=== PATIENT | female | born 1935 | race Caucasian/White ===

== ENCOUNTER 2017-02-15 13:47 | Inpatient (IN) ==
[2017-02-15] MEDS ORDERED: SODIUM CHLORIDE 0.9% 1,000 ML IV STA (15:22)
[2017-02-15] MEDS ORDERED: ONDANSETRON 4 MG/2 ML VIAL IV STA (15:22)
[2017-02-15] MEDS ORDERED: LOPERAMIDE 2 MG CAPSULE PO STA (15:22)
[2017-02-15 15:52] LABS: Basophils % 0.2 % (0.0-0.8); Eosinophils # 0.1 10*3/uL (0.0-0.87); Eosinophils % 0.7 % (0.00-10.9); Hematocrit 33.8 VOL% (35.7-47.0); Hemoglobin 11.3 GM/DL (12.0-16.0); Immature Granulocytes % 0.3 %; Immature Granulocytes Absolute 0.03 #; Lymphocytes # 1.7 10*3/uL (1.4-4.0); Mean Corpuscular HGB Conc 33.4 GM/DL (32-36); Mean Corpuscular Hemoglobin 30 PG (27-34); Mean Corpuscular Volume 90.9 FL (87-102); Monocytes # 0.6 10*3/uL (0.11-0.8); Neutrophils # 8.2 10*3/uL (1.4-7.4); Neutrophils % 76.8 % (38.7-73.9); Platelet Count 204 T/CUMM (130-400); Red Blood Count 3.72 MC/CUMM (3.8-5.5); Red Cell Distribution Width 13.9 % (9.3-17.3); White Blood Count 10.7 T/CUMM (4-12)
--- NOTE | 2017-02-15 16:03 | XRay Report ---
History: Abdominal pain Date: 02/15/2017 Study: KUB Comparison exam: March 30, 2015 There is some disproportionate small bowel dilatation compatible with partial small bowel obstruction. There is no gross mass lesion. Pacemaker lead is noted in the partially visualized chest. Surgical clips overlie the right upper abdomen. There has been previous right hip replacement. There is moderate degenerative disc disease of the lumbar spine. Impression: Partial small bowel obstruction PROCEDURE INTERPRETED AT [facility] DEPARTMENT OF RADIOLOGY Final Report Signed by: Dr. Asha Horan
[2017-02-15 16:10] LABS: Bilirubin,Total 0.9 MG/DL (0.2-1.0); Calcium 8.8 MG/DL (8.5-10.1); Osmolality,Calculated 282.5 MOS/KG (273-304); Potassium 4.1 MMOL/L (3.5-5.1); Total Protein 7.3 G/DL (6.4-8.3)
[2017-02-15] MEDS ORDERED: ONDANSETRON 4 MG/2 ML VIAL ONE (16:24)
--- NOTE | 2017-02-15 16:42 | Emergency Department Note ---
Jovanny Cunningham Brittany, am scribing for, and in the presence of, Mark Valles DO 15 :26. IReena John, DO, personally performed the services described in this documentation, ascribed by Mary Petty in my presence, and it is both accurate and complete 639 . Arrival - Arrival Chief Complaint: Nausea/Vomiting/Diarrhea Stated Complaint: vomiting, stomach cramps ED Nursing Triage Note: c/o Having nausea/vomiting/diarrhea , since night., generalized abd. pain , denies having increase temp Mode of Arrival: Wheelchair Limitations: No Limitations Source: Family Time Seen by Provider: 02/15/17 15:09 - History of Present Illness HPI Narrative: This is an 81 y/o white female,who presents to the ED with c/o abdominal pain which started 3 nights ago. She localizes the pain to the entire abdomen. She reports N/V/D, but denies a fever. Her states the diarrhea has now resolved but the vomiting is still there. She denies any hematochezia. She notes she has vomited x 2 today. Per edical chart, pt has a PMHx of chronic diarrhea. She states she normally takes Alk-seltzer. Pt has no other complaints/ pain in the ED at this time. Pt has a PMHx of pacemaker, A-fib, eye problems, recurring UTIs, chronic diarrhea, colon cancer, GI problems, and arthritis. Pt has had a T&A, hysterectomy ,appendectomy, hemicolectomy, cardiac ablation, gynecologic surgery, bilateral knee replacement, and left hip replacement. Pt has a family medical Hx of cancer. Pt denies a social Hx. Onset (ago): day(s) (Started 3 nights ago) Consistency: constant Severity: moderate Allergies/Adverse Reactions: Allergies Allergy/AdvReac Type Severity Reaction Status Date / Time Latex, Natural Rubber Allergy Severe RASH Verified 02/15/17 13:52 meperidine Allergy Intermediate Hallucinati Verified 02/15/17 13:52 ng Penicillins Allergy RASH Verified 02/15/17 13:52 ADHESIVE TAPE AdvReac Severe BLISTER Uncoded 02/15/17 13:52 Home Medications: Home Medications Medication Instructions Recorded Confirmed Type Multivitamin with Minerals 1 each PO DAILY 01/26/15 03/30/15 History [Multivitamins with Minerals] Digoxin Tab [Lanoxin Tab] 0.125 mg PO DAILY 02/24/15 03/30/15 History Ferrous Sulfate Tab [Feosol 325 mg PO DAILY 02/24/15 03/30/15 History Original Tab] Furosemide Tab [Lasix Tab] 20 mg PO DAILY 02/24/15 03/30/15 History Losartan [Cozaar] 25 mg PO DAILY 02/24/15 03/30/15 History Magnesium Chloride [Slow Mag] 64 mg PO DAILY 02/24/15 03/30/15 History Metoprolol Succinate Xl [Toprol Xl] 25 mg PO BID 02/24/15 03/30/15 History Pantoprazole Tab [Protonix Tab] 40 mg PO DAILY@0700 02/24/15 03/30/15 History Potassium Chloride Cap/Tab [K Dur] 20 meq PO DAILY 02/24/15 03/30/15 History Acetaminophen Tab [Tylenol Tab] 325 mg PO Q4H PRN #0 tablet 03/08/15 03/30/15 Rx HYDROcodone/ACETAMIN 5-325 [[place] 1 tablet PO Q4H PRN #20 tablet 03/08/15 Rx 5-325] Lactobacillus Acidoph/[place]gar 2 tablet PO TID tablet 03/08/15 03/30/15 Rx [Lactinex Chew Tab] Loperamide Cap [Imodium Cap] 2 mg PO Q2H PRN #0 capsule 03/08/15 03/30/15 Rx Warfarin [Coumadin] 2 mg PO DIRECTED 03/30/15 03/30/15 History Warfarin [Coumadin] 3 mg PO DIRECTED 03/30/15 03/30/15 History Review of System - Review of System 12 point system: reviewed and no additional remarkable complaints except as stated - Review of System Constitutional: Absent: chills, fever Head/Ears/Nose/Throat: Absent: epistaxis Respiratory: Absent: wheezing Cardiovascular: Absent: chest pain Gastrointestinal: Present: abdominal pain, nausea, vomiting. Absent: hematochezia Genitourinary female: Absent: dysuria Medical,Surgical,& Family Hx - Medical History Cardio: History of: Cardiac Dysrhythmia (A FIB), Pacemaker Neurology: No history of: Cerebrovascular Accident, Seizures HEENT: History of: Eye Problem (CATARACTS) Comment Only: HEENT Problems (CATARACTS) Respiratory: No history of: Asthma, Pulmonary Embolism Renal: No history of: Renal Failure Genitourinary: History of: Recurring Urinary Tract Infections Gastrointestinal: History of: Gastrointestinal Cancer (COLON CANCER), GI Problems (chronic diarrhea) Musculoskeletal: History of: Musculoskeletal Problems (arthritis) Other: History of: Cancer (RIGHT COLECTOMY) - Surgical History Cardiac Surgeries: Sugical HX of: Cardiac Catheterization (ABLATION) Thoracic Surgeries: Patient denies;: Lobectomy Neurologic Surgeries: Patient denies: Neurologic Surgery HEENT Surgeries: Surgical HX of: Tonsilectomy & Adenoidectomy Abdominal Surgeries: Surgical HX of: Abdominal Surgery (hemicolectomy), Appendectomy Reproductive Surgeries: Surgical HX of;: Gynecologic Surgery, Hysterectomy Orthopedic Surgeries: Surgical HX of;: Total Hip Replacement (LEFT), Total Knee Replacement (BILATERAL) - Family History Family History: Reports;: Family Cancer (1 BROTHER 3 SISTERS MOM) - Social History Smoking Status: Never smoker Frequency of Alcohol Use: None Type of Drug Use: None Exam Vital Signs: Vital Signs Temperature 97.0 F L 02/15/17 13:50 Pulse Rate 73 02/15/17 15:40 Respiratory Rate 18 02/15/17 15:40 Blood Pressure 135/68 02/15/17 15:40 O2 Sat by Pulse Oximetry 95 02/15/17 13:50 - General General appearance: alert, in no apparent distress - Head Head exam: Present: atraumatic, normocephalic, normal inspection - Eye Eye exam: Present: normal appearance, PERRL, EOMI. Absent: nystagmus - ENT ENT exam: Present: normal exam, mucous membranes moist - Neck Neck exam: Present: normal inspection, full ROM, trachea midline. Absent: tenderness - Chest Chest inspection: Present: normal inspection, symmetric chest wall rise. Absent : tenderness, rash, abscess - Respiratory Respiratory exam: Present: normal lung sounds bilaterally. Absent: prolonged expiratory phase, respiratory distress - Cardiovascular Cardiovascular exam: Present: regular rate, normal rhythm, normal heart sounds. Absent: murmur, rubs, gallop, clicks, JVD - Abdominal Exam Abdominal exam: Present: soft, tenderness (Diffuse tenderness), guarding, normal bowel sounds. Absent: distention, rebound, rigidity - Rectal Exam Rectal exam: Present: deferred - Extremities Exam Extremities exam: Present: normal inspection, full ROM, normal capillary refill. Absent: tenderness, pedal edema - Back Exam Back exam: Present: normal inspection, full ROM. Absent: tenderness, muscle spasm, rashes - Neurological Exam Neurological exam: Present: alert, oriented X3, CN II-XII intact. Absent: motor sensory deficit - Psychiatric Psychiatric exam: Present: normal affect, normal mood. Absent: depressed, agitated, anxious, flat affect - Skin Skin exam: Present: warm, dry, intact, normal color. Absent: rash, cyanosis, diaphoresis Results - Labs CBC & BMP: 02/15/17 14:13 02/15/17 14:13 Lab Results: I have reviewed the patients labs Labs: Laboratory Tests 02/15/17 02/15/17 14:13 14:13 WBC 10.7 RBC 3.72 L Hgb 11.3 L Hct 33.8 L MCV 90.9 MCH 30 MCHC 33.4 RDW 13.9 Plt Count 204 MPV 10.0 Neut % (Auto) 76.8 H Lymph % (Auto) 16.0 L Brooks % (Auto) 6.0 Eos % (Auto) 0.7 Baso % (Auto) 0.2 Neut # (Auto) 8.2 H Lymph # (Auto) 1.7 Brooks # (Auto) 0.6 Eos # (Auto) 0.1 Baso # (Auto) 0.0 Immature Gran % 0.3 Nucleated RBC % 0.0 Immature Gran # 0.03 Nucleated RBCs # 0.00 Immature Plt Fraction 0.0 Sodium 139 Potassium 4.1 Chloride 104 Carbon Dioxide 29 Anion Gap 10.1 BUN 27 H Creatinine 1.30 H GFR Calculation 41 BUN/Creatinine Ratio 20.00 Glucose 116 H Calculated Osmolality 282.5 Calcium 8.8 Total Bilirubin 0.90 AST 24 ALT 16 Alkaline Phosphatase 62 Total Protein 7.3 Albumin 3.0 L Globulin 4.3 H Albumin/Globulin Ratio 0.6 L Amylase 46 Lipase 118.0 - Diagnostic Findings Procedure: KUB x-ray: report reviewed by me (Partial small bowel obstruction) Disposition Clinical Impression: Small bowel obstruction, partial Case discussed with: patient, patient's family Disposition: Still a Patient Condition: Stable Time of Disposition: 16:41 (Pt to be admitted. Hospitalist and surgery to see.)
--- NOTE | 2017-02-15 17:16 | General Surg History&Physical ---
Assessment and Plan - Time spent with patient Time spent with patient: Less than 30 minutes (1) Small bowel obstruction, partial Status: Acute Assessment and plan: This is most likely a bowel obstruction secondary to adhesions. With the patient's previous history of colon cancer however we need to evaluate with a CT scan. If this is a benign cause of obstruction it may resolve with conservative treatment. I explained to the family that if it persists then we may need to look at surgical treatment. We will admit her and place her on IV fluids. Will check a CT scan of her abdomen. We will place a nasogastric tube. The patient and her family are in agreement with the plan. Current Visit: Yes History of Present Illness Chief complaint: Abdominal pain History of present illness: Ms. Garcia is a 81 year old female Who 3 days ago began having vague abdominal cramping followed by nausea and vomiting and diarrhea. Diarrheas and bowel movements stopped yesterday. Since that time she has had no bowel movements or flatus. She described the pain is mild and more in the right side of her abdomen. It feels better if she vomits. She does not know of any aggravating or alleviating factors. She has not had fever or chills. She has not had any blood per rectum. She has not had any hematemesis. She has had multiple abdominal operations. Home Medications Medication Instructions Recorded Confirmed Type Multivitamin with Minerals 1 each PO DAILY 01/26/15 03/30/15 History [Multivitamins with Minerals] Digoxin Tab [Lanoxin Tab] 0.125 mg PO DAILY 02/24/15 03/30/15 History Ferrous Sulfate Tab [Feosol 325 mg PO DAILY 02/24/15 03/30/15 History Original Tab] Furosemide Tab [Lasix Tab] 20 mg PO DAILY 02/24/15 03/30/15 History Losartan [Cozaar] 25 mg PO DAILY 02/24/15 03/30/15 History Magnesium Chloride [Slow Mag] 64 mg PO DAILY 02/24/15 03/30/15 History Metoprolol Succinate Xl [Toprol Xl] 25 mg PO BID 02/24/15 03/30/15 History Pantoprazole Tab [Protonix Tab] 40 mg PO DAILY@0700 02/24/15 03/30/15 History Potassium Chloride Cap/Tab [K Dur] 20 meq PO DAILY 02/24/15 03/30/15 History Acetaminophen Tab [Tylenol Tab] 325 mg PO Q4H PRN #0 tablet 03/08/15 03/30/15 Rx HYDROcodone/ACETAMIN 5-325 [[place] 1 tablet PO Q4H PRN #20 tablet 03/08/15 Rx 5-325] Lactobacillus Acidoph/[place] 2 tablet PO TID tablet 03/08/15 03/30/15 Rx [Lactinex Chew Tab] Loperamide Cap [Imodium Cap] 2 mg PO Q2H PRN #0 capsule 03/08/15 03/30/15 Rx Warfarin [Coumadin] 2 mg PO DIRECTED 03/30/15 03/30/15 History Warfarin [Coumadin] 3 mg PO DIRECTED 03/30/15 03/30/15 History Allergies Allergy/AdvReac Type Severity Reaction Status Date / Time Latex, Natural Rubber Allergy Severe RASH Verified 02/15/17 13:52 meperidine Allergy Intermediate Hallucinati Verified 02/15/17 13:52 ng Penicillins Allergy RASH Verified 02/15/17 13:52 ADHESIVE TAPE AdvReac Severe BLISTER Uncoded 02/15/17 13:52 Medical,Surgical,& Family Hx - Medical History Cardio: History of: Cardiac Dysrhythmia (A FIB), Pacemaker Neurology: No history of: Cerebrovascular Accident, Seizures HEENT: History of: Eye Problem (CATARACTS) Comment Only: HEENT Problems (CATARACTS) Respiratory: No history of: Asthma, Pulmonary Embolism Renal: No history of: Renal Failure Genitourinary: History of: Recurring Urinary Tract Infections Gastrointestinal: History of: Gastrointestinal Cancer (COLON CANCER), GI Problems (chronic diarrhea) Musculoskeletal: History of: Musculoskeletal Problems (arthritis) Other: History of: Cancer (RIGHT COLECTOMY) - Surgical History Cardiac Surgeries: Sugical HX of: Cardiac Catheterization (ABLATION) Thoracic Surgeries: Patient denies;: Lobectomy Neurologic Surgeries: Patient denies: Neurologic Surgery HEENT Surgeries: Surgical HX of: Tonsilectomy & Adenoidectomy Abdominal Surgeries: Surgical HX of: Abdominal Surgery (hemicolectomy), Appendectomy Reproductive Surgeries: Surgical HX of;: Gynecologic Surgery, Hysterectomy Orthopedic Surgeries: Surgical HX of;: Total Hip Replacement (LEFT), Total Knee Replacement (BILATERAL) - Family History Family History: Reports;: Family Cancer (1 BROTHER 3 SISTERS MOM) - Social History Smoking Status: Never smoker Frequency of Alcohol Use: None Type of Drug Use: None Exam - Constitutional Vitals: Period Temp Pulse Resp BP Sys/Pagan Pulse Ox Last 24 Hr 97.0 F 73-73 16-18 126-135/61-68 95 General appearance: no acute distress - Head Head exam: Present: normocephalic - Eye Eye exam: Absent: scleral icterus - ENT Mouth exam: Present: normal voice - Neck Neck exam: Present: trachea midline. Absent: tenderness - Respiratory Respiratory exam: Present: clear to auscultation bilaterally. Absent: accessory muscle use - Cardiovascular Cardiovascular exam: Present: RRR - GI/Abdominal GI/Abdominal exam: Present: soft. Absent: distended, tenderness, rebound - Neurological Exam Neurological exam: Present: alert, oriented X3. Absent: motor sensory deficit Speech: Present: normal - Skin Skin exam: Present: normal color - Constitutional Constitutional: Present: anorexia. Absent: chills, fever(s), weight loss - EENT Nose, mouth and throat: Absent: dysphagia - Cardiovascular Cardiovascular: Absent: chest pain at rest, chest pain with activity, dyspnea, dyspnea on exertion, syncope - Respiratory Respiratory: Absent: dyspnea, hemoptysis, dyspnea on exertion - Gastrointestinal Gastrointestinal: Present: abdominal pain, bloating, cramping, diarrhea, nausea , vomiting. Absent: hematemesis, hematochezia, melena, jaundice - Genitourinary Genitourinary: Absent: hematuria - Musculoskeletal Musculoskeletal: Absent: back pain - Neurological Neurological: Absent: focal weakness, syncope - Endocrine Endocrine: Absent: polyuria Hematologic/Lymphatic: Absent: easy bleeding, easy bruising Results - Labs CBC & BMP: 02/15/17 14:13 02/15/17 14:13 Lab Results: I have reviewed the past 24 hour labs - Diagnostic Findings Procedure: KUB x-ray: image reviewed by me, report reviewed by me
[2017-02-15] MEDS ORDERED: ONDANSETRON 4 MG/2 ML VIAL IV PRN (17:19)
[2017-02-15] MEDS ORDERED: ACETAMINOPHEN 325 MG TABLET PO PRN (17:19)
[2017-02-15] MEDS ORDERED: MORPHINE 2 MG/1 ML SYRINGE IV PRN (17:19)
--- NOTE | 2017-02-15 17:31 | Hospitalist Consult Note ---
Assessment and Plan - Time spent with patient Time spent with patient: Greater than 30 minutes (1) H/O colon cancer s/p hemicolectomy Status: Acute Assessment and plan: 81-year-old white female with history of cardiac dysrhythmias status post ablation 4 on Coumadin, colon cancer status post hemicolectomy, herpes zoster, and pacemaker placement presented to the ED with 4 day history of nausea and vomiting due to partial small bowel obstruction. Dr. Jacinto MARTINEZ has already seen and examined the patient. NG tube will be placed in CT scan of the abdomen and pelvis will be performed. This obstruction is most likely secondary to adhesions but need to rule out recurrence of colon cancer due to her history. Will restart her heart medications except for anticoagulation in case surgery is eminent. Patient also has acute renal failure most likely due to dehydration. She will receive IV fluids and we will monitor her kidney function. Labs have been ordered for the morning. We will continue to follow the patient. Thank you for this consult. Dr. Pritchard will see and examine patient and further recommendations to follow. Current Visit: Yes (2) History of cardiac dysrhythmia Status: Acute Current Visit: Yes (3) History of cardiac radiofrequency ablation Status: Acute Current Visit: Yes (4) Small bowel obstruction, partial Status: Acute Current Visit: Yes (5) Chronic anticoagulation Problem details: Warfarin toxicity. She is very reliable. Usually this is not a problem. Status: Chronic Current Visit: No (6) Acute renal failure Status: Resolved Current Visit: No History of Present Illness - Data of Consult Patient: new to practice Consult date: 02/15/17 Requesting Physician: Gerardo Casey III. - Consult Narrative Reason for consult: medical management History of present illness: Ms. Garcia is a 81 year old white female with history of A. fib status post 4 ablations on Coumadin, hypertension, pacemaker placement, and colon cancer status post colectomy 3 years [address] Jacinto MARTINEZ from general surgery with small bowel obstruction. Patient states approximately 4 days ago she started vomiting bilious material that was green with a foul odor. She states this was associated with nausea, right-sided abdominal pain, and runny diarrhea. Patient states the diarrhea stopped yesterday and since then she has passed no gas nor bowel movement. She denies chest pain or shortness of breath. Patient states that her hemicolectomy she has had no problems and did not require chemo or radiation. Upon exam patient is awake and alert and comfortable at this moment. Her abdomen is mildly distended with no bowel sounds. She is afebrile and her vital signs are stable. Labs are relatively unremarkable except for elevated creatinine of 1.3 and a BUN of 27. KUB is showing a partial small bowel obstruction. Hospital medicine has been consulted to assist with medical management. Patient's medicines will be reconciled once verified in the computer and patient is a full code. CC: - Home Medications and Allergies Home Medications: Home Medications Medication Instructions Recorded Confirmed Type Multivitamin with Minerals 1 each PO DAILY 01/26/15 03/30/15 History [Multivitamins with Minerals] Digoxin Tab [Lanoxin Tab] 0.125 mg PO DAILY 02/24/15 03/30/15 History Ferrous Sulfate Tab [Feosol 325 mg PO DAILY 02/24/15 03/30/15 History Original Tab] Furosemide Tab [Lasix Tab] 20 mg PO DAILY 02/24/15 03/30/15 History Losartan [Cozaar] 25 mg PO DAILY 02/24/15 03/30/15 History Magnesium Chloride [Slow Mag] 64 mg PO DAILY 02/24/15 03/30/15 History Metoprolol Succinate Xl [Toprol Xl] 25 mg PO BID 02/24/15 03/30/15 History Pantoprazole Tab [Protonix Tab] 40 mg PO DAILY@0700 02/24/15 03/30/15 History Potassium Chloride Cap/Tab [K Dur] 20 meq PO DAILY 02/24/15 03/30/15 History Acetaminophen Tab [Tylenol Tab] 325 mg PO Q4H PRN #0 tablet 03/08/15 03/30/15 Rx HYDROcodone/ACETAMIN 5-325 [[place] 1 tablet PO Q4H PRN #20 tablet 03/08/15 Rx 5-325] Lactobacillus Acidoph/[place] 2 tablet PO TID tablet 03/08/15 03/30/15 Rx [Lactinex Chew Tab] Loperamide Cap [Imodium Cap] 2 mg PO Q2H PRN #0 capsule 03/08/15 03/30/15 Rx Warfarin [Coumadin] 2 mg PO DIRECTED 03/30/15 03/30/15 History Warfarin [Coumadin] 3 mg PO DIRECTED 03/30/15 03/30/15 History Allergies/Adverse Reactions: Allergies Allergy/AdvReac Type Severity Reaction Status Date / Time Latex, Natural Rubber Allergy Severe RASH Verified 02/15/17 13:52 meperidine Allergy Intermediate Hallucinati Verified 02/15/17 13:52 ng Penicillins Allergy RASH Verified 02/15/17 13:52 ADHESIVE TAPE AdvReac Severe BLISTER Uncoded 02/15/17 13:52 Medical,Surgical,& Family Hx - Medical History Cardio: History of: Cardiac Dysrhythmia (A FIB), Pacemaker Neurology: No history of: Cerebrovascular Accident, Seizures HEENT: History of: Eye Problem (CATARACTS) Comment Only: HEENT Problems (CATARACTS) Respiratory: No history of: Asthma, Pulmonary Embolism Renal: No history of: Renal Failure Genitourinary: History of: Recurring Urinary Tract Infections Gastrointestinal: History of: Gastrointestinal Cancer (COLON CANCER), GI Problems (chronic diarrhea) Musculoskeletal: History of: Musculoskeletal Problems (arthritis) Other: History of: Cancer (RIGHT COLECTOMY) - Surgical History Cardiac Surgeries: Sugical HX of: Cardiac Catheterization (ABLATION) Thoracic Surgeries: Patient denies;: Lobectomy Neurologic Surgeries: Patient denies: Neurologic Surgery HEENT Surgeries: Surgical HX of: Tonsilectomy & Adenoidectomy Abdominal Surgeries: Surgical HX of: Abdominal Surgery (hemicolectomy), Appendectomy Reproductive Surgeries: Surgical HX of;: Gynecologic Surgery, Hysterectomy Orthopedic Surgeries: Surgical HX of;: Total Hip Replacement (LEFT), Total Knee Replacement (BILATERAL) - Family History Family History: Reports;: Family Cancer (1 BROTHER 3 SISTERS MOM) - Social History Smoking Status: Never smoker Frequency of Alcohol Use: None Type of Drug Use: None Marital Status: Lives With:: Spouse Functional capacity: independent ambulation 12 point system: reviewed and no additional remarkable complaints except as stated Exam - Constitutional Vitals: Period Temp Pulse Resp BP Sys/Pagan Pulse Ox Last 24 Hr 97.0 F 73-73 16-18 126-135/61-68 95 Exam: Constitutional System: No distress. No tremulousness. Head: Normocephalic, atraumatic. Ears, Nose and Throat System: No evidence of Otitis or Mastoiditis. No epistaxis or discharge Eyes System: Pupils equal, round, and reactive. Extraocular muscles intact. Neck: Supple, without adenopathy, No jugular venous distention. No thyromegaly, neck mass, or prior surgery apparent. Respiratory System: Chest clear to auscultation. Left chest wall well-healed scar Cardiovascular System: Heart with regular rate and rhythm. No murmur. GI System: Abdomen mildly distended, tender to palpation right lower quadrant. No active bowel sounds present. Well-healed midline incision Musculoskeletal System: limbs with no pedal edema. Full distal pulses. Neurological System: No discernable sensory deficit. No aphasia Psychiatric System: Conversation is rational Results - Labs CBC & BMP: 02/15/17 14:13 02/15/17 14:13 Lab Results: I have reviewed the past 24 hour labs - Impressions EKG is pending - Diagnostic Findings Procedure: KUB x-ray: report reviewed by me (Partial small bowel obstruction) Quality Measures - VTE Contraindication to Pharmacological VTE Prophylaxis: Already on Theraputic Agent , No Prophylaxis Needed
--- NOTE | 2017-02-15 18:13 | CT Report ---
History: Small bowel obstruction Date: 02/15/2017 Study: CT abdomen and pelvis with IV contrast Comparison exam: January 31, 2015 Technique: Spiral CT sections were obtained from the lung bases to the pubic symphysis following 100 mL Omnipaque [address] abdomen: There is no nereida pneumonia in the partially visualized lung bases. There is mild perihepatic ascites. There are some stable benign cystic areas in the liver. There has been previous cholecystectomy. There is mild perisplenic ascites. Spleen, pancreas, adrenal glands are unremarkable. There is bilateral renal excretion without hydronephrosis. Small renal cysts are noted bilaterally. There is disproportionate small bowel dilatation compatible with partial small bowel obstruction. It is suspected that the transition zone is in the right lower quadrant. Consider adhesions. No obvious mass is seen. The distal ileum is normal in caliber. There is no aortic aneurysm. There is prominent degenerative disc disease of spine. CT pelvis: There is no obvious pelvic mass, though metallic artifact from the right hip prosthesis is present. Impression: Partial small bowel obstruction. Transition zone is suspected to be in the right lower quadrant. Consider adhesions The CT exam was performed using one or more of the following dose reduction techniques: Automated exposure control, adjustment of the mA and/or kV according to patient size, or use of iterative reconstruction technique. PROCEDURE INTERPRETED AT [facility] DEPARTMENT OF RADIOLOGY Final Report Signed by: Dr. Asha Horan
[2017-02-15] MEDS: DEXTROSE 5% LACTATED RINGERS 1,000 ML IV SCH (18:33)
--- NOTE | 2017-02-15 20:20 | XRay Report ---
History: Nasogastric tube placement Date: 02/15/2017 Study: Chest x-ray single view portable Comparison exam: March 06, 2015 The nasogastric tube is positioned with its tip overlying the proximal to mid stomach level. There is cardiomegaly. The pulmonary vasculature is slightly prominent. There is no mediastinal mass. There is mild to moderate aortic arch calcification. There is some coarsening of interstitial markings in the lower lungs which may be chronic. A left subclavian dual-lead transvenous pacemaker is unchanged. Osseous structures are similar. Impression: The nasogastric tube is well-positioned. Cardiomegaly and evidence of mild CHF PROCEDURE INTERPRETED AT [facility] DEPARTMENT OF RADIOLOGY Final Report Signed by: Dr. Asha Horan
[2017-02-15] MEDS: METOPROLOL SUCCINATE XL 25 MG TABLET PO SCH (22:13)
[2017-02-15] MEDS: ENOXAPARIN 80 MG/0.8 ML SYRINGE SUBCUT SCH (22:14)
[2017-02-16] MEDS: DEXTROSE 5% LACTATED RINGERS 1,000 ML IV SCH ×3 (00:40→17:49)
[2017-02-16 08:43] LABS: Basophils % 0.2 % (0.0-0.8); Eosinophils # 0.3 10*3/uL (0.0-0.87); Eosinophils % 3.2 % (0.00-10.9); Hematocrit 29.6 VOL% (35.7-47.0); Hemoglobin 9.8 GM/DL (12.0-16.0); Immature Granulocytes % 0.3 %; Immature Granulocytes Absolute 0.03 #; Lymphocytes # 3.2 10*3/uL (1.4-4.0); Lymphocytes % 35.6 % (21.3-54.2); Mean Corpuscular HGB Conc 33.1 GM/DL (32-36); Mean Corpuscular Hemoglobin 31 PG (27-34); Mean Corpuscular Volume 92.8 FL (87-102); Mean Platelet Volume 10.3 FL (9.6-12.0); Monocytes # 0.9 10*3/uL (0.11-0.8); Neutrophils # 4.5 10*3/uL (1.4-7.4); Neutrophils % 50.7 % (38.7-73.9); Platelet Count 187 T/CUMM (130-400); Red Blood Count 3.19 MC/CUMM (3.8-5.5); White Blood Count 8.8 T/CUMM (4-12)
[2017-02-16 09:01] LABS: INR 1.5; PT Patient Result 16.6 SECS
[2017-02-16 09:19] LABS: Albumin 2.5 G/DL (3.4-5.0); Bilirubin,Total 0.7 MG/DL (0.2-1.0); Calcium 8.4 MG/DL (8.5-10.1); Osmolality,Calculated 283.3 MOS/KG (273-304); Potassium 3.8 MMOL/L (3.5-5.1); Total Protein 5.7 G/DL (6.4-8.3)
[2017-02-16] MEDS: METOPROLOL SUCCINATE XL 25 MG TABLET PO SCH ×2 (09:45→20:15)
[2017-02-16] MEDS: LOSARTAN 25 MG TABLET PO SCH (09:45)
[2017-02-16] MEDS: POTASSIUM CHLORIDE 20 MEQ TABLET PO SCH (09:50)
[2017-02-16] MEDS: PANTOPRAZOLE 40 MG TABLET PO SCH (09:50)
--- NOTE | 2017-02-16 10:28 | General Surgery Progress Note ---
Assessment and Plan - Time spent with patient Time spent with patient: Less than 30 minutes (1) Small bowel obstruction, partial Status: Acute Assessment and plan: This is most likely a bowel obstruction secondary to adhesions. With the patient's previous history of colon cancer however we need to evaluate with a CT scan. If this is a benign cause of obstruction it may resolve with conservative treatment. I explained to the family that if it persists then we may need to look at surgical treatment. We will admit her and place her on IV fluids. Will check a CT scan of her abdomen. We will place a nasogastric tube. The patient and her family are in agreement with the plan. 02/16: She feels better but is not passing flatus or having a bowel movement. She has a moderate amount of nasogastric output. I feel that we should continue with nasogastric suction today and if by tomorrow she is not showing signs of opening up then we may have to consider the possibility of surgery. This plan was discussed in detail with the patient. Current Visit: Yes Subjective Patient reports: Present: feels better, pain is less, no flatus, no bowel movement. Absent: nausea, vomiting, shortness of breath Exam - Constitutional Vitals: Period Temp Pulse Resp BP Sys/Pagan Pulse Ox Last 24 Hr 97.0 F-97.6 F 69-82 16-18 108-143/57-69 93-96 General appearance: no acute distress - Head Head exam: Present: normocephalic - Eye Eye exam: Absent: scleral icterus - Respiratory Respiratory exam: Absent: accessory muscle use - GI/Abdominal GI/Abdominal exam: Present: soft. Absent: distended, guarding, tenderness, rebound Results - Labs CBC & BMP: 02/16/17 08:19 02/16/17 08:19 Lab Results: I have reviewed the past 24 hour labs Quality Measures - VTE Contraindication to Pharmacological VTE Prophylaxis: Already on Theraputic Agent , No Prophylaxis Needed
--- NOTE | 2017-02-16 10:44 | Hospitalist Progress Note ---
Assessment and Plan (1) Chronic anticoagulation Status: Chronic Assessment and plan: The patient is anticoagulated with Coumadin secondary to atrial fibrillation. Her INR is 1.5. She is currently receiving subcutaneous Lovenox injection- renally dosed for her elevated creatinine. Current Visit: No (2) History of atrial fibrillation Status: Chronic Assessment and plan: Currently rate controlled. Patient on digoxin and beta-blockers with good results Current Visit: No (3) Small bowel obstruction, partial Status: Acute Assessment and plan: The patient has an NG tube to suction. She is being followed by general surgery for this. Continue supportive care. Current Visit: Yes (4) Chronic kidney disease, stage II (mild) Status: Chronic Assessment and plan: Creatinine is close to baseline. Continue IV fluids as the patient is n.p.o. Current Visit: No Hospitalist: Subjective Interval history: Patient seen and examined. No acute events overnight. Case discussed with nursing staff. Labs reviewed. at the bedside at the time of my visit. She reports some improvement in her abdominal pain But complains of a headache. She would like something to drink. Exam - Constitutional Vitals: Period Temp Pulse Resp BP Sys/Pagan Pulse Ox Last 24 Hr 97.0 F-97.6 F 69-82 16-18 108-143/57-69 93-96 Exam: Constitutional System: No distress. No tremulousness. Head: Normocephalic, atraumatic. Ears, Nose and Throat System: No pain or tenderness. No epistaxis or discharge. NG tube in place. Eyes System: Pupils equal, round, and reactive. Extraocular muscles intact. Neck: Supple, without adenopathy, No jugular venous distention. No thyromegaly, neck mass, or prior surgery apparent. Respiratory System: Chest clear to auscultation. Cardiovascular System: Heart with regular rate and rhythm. No murmur. GI System: Abdomen soft, mild tenderness in the right lower quadrant. Hypo- active bowel sounds present. Musculoskeletal System: limbs with no pedal edema. Full distal pulses. Normal capillary refill. Neurological System: No discernable sensory deficit. No aphasia Psychiatric System: Conversation is rational Results - Labs CBC & BMP: 02/16/17 08:19 02/16/17 08:19 Lab Results: I have reviewed the past 24 hour labs Quality Measures - VTE Contraindication to Pharmacological VTE Prophylaxis: Already on Theraputic Agent , No Prophylaxis Needed
--- NOTE | 2017-02-16 10:58 | XRay Report ---
History: Nasogastric tube placement. Small bowel obstruction Date: 02/16/2017 Study: Chest x-ray AP portable Comparison exam: 02/15/2017 The nasogastric tube is well-positioned with its tip overlying the distal stomach level. There is continued cardiomegaly. The mediastinal contours are unchanged. There is again mild prominence of the pulmonary vasculature. There is some interstitial disease in the lung bases which could be chronic, though some superimposed mild interstitial edema cannot be completely excluded. A left subclavian multiple lead pacemaker device is intact and unchanged. Osseous structures are similar. Impression: Satisfactory positioning of the nasogastric tube. Otherwise unchanged PROCEDURE INTERPRETED AT [facility] DEPARTMENT OF RADIOLOGY Final Report Signed by: Dr. Asha Horan
[2017-02-16] MEDS: DIGOXIN 0.125 MG TABLET PO SCH (12:43)
[2017-02-16] MEDS: ENOXAPARIN 80 MG/0.8 ML SYRINGE SUBCUT SCH (20:17)
[2017-02-17 06:02] LABS: Basophils % 0.3 % (0.0-0.8); Eosinophils # 0.3 10*3/uL (0.0-0.87); Hematocrit 28.9 VOL% (35.7-47.0); Hemoglobin 9.5 GM/DL (12.0-16.0); Immature Granulocytes % 0.1 %; Immature Granulocytes Absolute 0.01 #; Lymphocytes # 2.3 10*3/uL (1.4-4.0); Lymphocytes % 33.4 % (21.3-54.2); Mean Corpuscular HGB Conc 32.9 GM/DL (32-36); Mean Corpuscular Hemoglobin 31 PG (27-34); Mean Corpuscular Volume 93.8 FL (87-102); Mean Platelet Volume 10.3 FL (9.6-12.0); Monocytes # 0.7 10*3/uL (0.11-0.8); Monocytes % 10.5 % (1.7-12.7); Neutrophils # 3.5 10*3/uL (1.4-7.4); Neutrophils % 51.7 % (38.7-73.9); Platelet Count 183 T/CUMM (130-400); Red Blood Count 3.08 MC/CUMM (3.8-5.5); Red Cell Distribution Width 13.9 % (9.3-17.3); White Blood Count 6.8 T/CUMM (4-12)
[2017-02-17 06:27] LABS: INR 1.4
[2017-02-17 06:46] LABS: Calcium 8.1 MG/DL (8.5-10.1); Magnesium 2.2 MG/DL (1.8-2.4); Osmolality,Calculated 289.6 MOS/KG (273-304); Potassium 3.9 MMOL/L (3.5-5.1)
--- NOTE | 2017-02-17 08:14 | General Surgery Progress Note ---
Assessment and Plan (1) Small bowel obstruction, partial Status: Acute Assessment and plan: This is most likely a bowel obstruction secondary to adhesions. With the patient's previous history of colon cancer however we need to evaluate with a CT scan. If this is a benign cause of obstruction it may resolve with conservative treatment. I explained to the family that if it persists then we may need to look at surgical treatment. We will admit her and place her on IV fluids. Will check a CT scan of her abdomen. We will place a nasogastric tube. The patient and her family are in agreement with the plan. 02/16: She feels better but is not passing flatus or having a bowel movement. She has a moderate amount of nasogastric output. I feel that we should continue with nasogastric suction today and if by tomorrow she is not showing signs of opening up then we may have to consider the possibility of surgery. This plan was discussed in detail with the patient. 02/17: She feels much better and has no abdominal pain. She feels like something is changed in her abdomen and it feels back to normal suddenly. She is passing flatus but has not had a bowel movement. It appears that her bowel obstruction may have resolved. We will remove her nasogastric tube and start her on liquids today. Current Visit: Yes Subjective Patient reports: Present: feels better, flatus, no bowel movement. Absent: still having pain, nausea, vomiting Exam - Constitutional Vitals: Period Temp Pulse Resp BP Sys/Pagan Pulse Ox Last 24 Hr 97.0 F-98.1 F 69-73 18-18 106-131/53-76 95-97 General appearance: no acute distress - Head Head exam: Present: normocephalic - Eye Eye exam: Absent: scleral icterus - Respiratory Respiratory exam: Absent: accessory muscle use - GI/Abdominal GI/Abdominal exam: Present: normal bowel sounds, soft. Absent: distended, guarding, tenderness, rebound Results - Labs CBC & BMP: 02/17/17 05:45 02/17/17 05:45 Lab Results: I have reviewed the past 24 hour labs Quality Measures - VTE Contraindication to Pharmacological VTE Prophylaxis: Already on Theraputic Agent , No Prophylaxis Needed
[2017-02-17] MEDS: DEXTROSE 5% LACTATED RINGERS 1,000 ML IV SCH ×2 (09:38→10:07)
[2017-02-17] MEDS: METOPROLOL SUCCINATE XL 25 MG TABLET PO SCH ×2 (09:50→21:11)
[2017-02-17] MEDS: LOSARTAN 25 MG TABLET PO SCH (09:50)
[2017-02-17] MEDS: PANTOPRAZOLE 40 MG TABLET PO SCH (09:50)
[2017-02-17] MEDS: POTASSIUM CHLORIDE 20 MEQ TABLET PO SCH (09:50)
--- NOTE | 2017-02-17 11:47 | Hospitalist Progress Note ---
Assessment and Plan (1) Chronic anticoagulation Status: Chronic Assessment and plan: The patient is anticoagulated with Coumadin secondary to atrial fibrillation. Her INR is 1.5. She is currently receiving subcutaneous Lovenox injection- renally dosed for her elevated creatinine. Current Visit: No (2) History of atrial fibrillation Status: Chronic Assessment and plan: Currently rate controlled. Patient on digoxin and beta-blockers with good results Current Visit: No (3) Small bowel obstruction, partial Status: Acute Assessment and plan: The patient has an NG tube to suction. She is being followed by general surgery for this. Continue supportive care. Current Visit: Yes (4) Chronic kidney disease, stage II (mild) Status: Chronic Assessment and plan: Creatinine is close to baseline. Continue IV fluids at 50cc/hr. Current Visit: No Hospitalist: Subjective Interval history: Patient seen and examined. No acute events overnight. Case discussed with nursing staff. Labs reviewed. Looks and feels better today. NGT scheduled for removal. Exam - Constitutional Vitals: Period Temp Pulse Resp BP Sys/Pagan Pulse Ox Last 24 Hr 97.0 F-98.1 F 69-73 18-18 106-131/53-76 95-97 Exam: Constitutional System: No distress. No tremulousness. Head: Normocephalic, atraumatic. Ears, Nose and Throat System: No pain or tenderness. No epistaxis or discharge. NG tube in place. Eyes System: Pupils equal, round, and reactive. Extraocular muscles intact. Neck: Supple, without adenopathy, No jugular venous distention. Respiratory System: Chest clear to auscultation. Cardiovascular System: Heart with regular rate and rhythm. No murmur. GI System: Abdomen soft, mild tenderness in the right lower quadrant. Hypo- active bowel sounds present. Musculoskeletal System: limbs with no pedal edema. Full distal pulses. Normal capillary refill. Neurological System: No discernable sensory deficit. No aphasia Psychiatric System: Conversation is rational Results - Labs CBC & BMP: 02/17/17 05:45 02/17/17 05:45 Lab Results: I have reviewed the past 24 hour labs Quality Measures - VTE Contraindication to Pharmacological VTE Prophylaxis: Already on Theraputic Agent , No Prophylaxis Needed
[2017-02-17] MEDS: DIGOXIN 0.125 MG TABLET PO SCH (13:27)
[2017-02-17] MEDS: ENOXAPARIN 80 MG/0.8 ML SYRINGE SUBCUT SCH (21:11)
[2017-02-18] MEDS: DEXTROSE 5% LACTATED RINGERS 1,000 ML IV SCH ×2 (01:27→05:41)
--- NOTE | 2017-02-18 06:59 | General Surgery Progress Note ---
Assessment and Plan (1) Small bowel obstruction, partial Status: Acute Assessment and plan: This is most likely a bowel obstruction secondary to adhesions. With the patient's previous history of colon cancer however we need to evaluate with a CT scan. If this is a benign cause of obstruction it may resolve with conservative treatment. I explained to the family that if it persists then we may need to look at surgical treatment. We will admit her and place her on IV fluids. Will check a CT scan of her abdomen. We will place a nasogastric tube. The patient and her family are in agreement with the plan. 02/16: She feels better but is not passing flatus or having a bowel movement. She has a moderate amount of nasogastric output. I feel that we should continue with nasogastric suction today and if by tomorrow she is not showing signs of opening up then we may have to consider the possibility of surgery. This plan was discussed in detail with the patient. 02/17: She feels much better and has no abdominal pain. She feels like something is changed in her abdomen and it feels back to normal suddenly. She is passing flatus but has not had a bowel movement. It appears that her bowel obstruction may have resolved. We will remove her nasogastric tube and start her on liquids today. 02/18: She looks and feels much better. She has no abdominal pain or nausea or vomiting has had several bowel movements. We will advance her diet and she can probably be discharged home today. Current Visit: Yes Subjective Patient reports: Present: feels better, tolerating liquids well. Absent: still having pain, nausea, vomiting, shortness of breath Exam - Constitutional Vitals: Period Temp Pulse Resp BP Sys/Pagan Pulse Ox Last 24 Hr 96.9 F-98.0 F 70-83 16-20 114-151/63-76 96-99 General appearance: no acute distress - Head Head exam: Present: normocephalic - Respiratory Respiratory exam: Absent: accessory muscle use - GI/Abdominal GI/Abdominal exam: Present: soft. Absent: distended, tenderness, rebound Results - Labs CBC & BMP: 02/17/17 05:45 02/17/17 05:45 Lab Results: I have reviewed the past 24 hour labs Quality Measures - VTE Contraindication to Pharmacological VTE Prophylaxis: Already on Theraputic Agent , No Prophylaxis Needed
[2017-02-18] MEDS: PANTOPRAZOLE 40 MG TABLET PO SCH (09:34)
[2017-02-18] MEDS: LOSARTAN 25 MG TABLET PO SCH (09:34)
[2017-02-18] MEDS: METOPROLOL SUCCINATE XL 25 MG TABLET PO SCH (09:34)
[2017-02-18] MEDS: POTASSIUM CHLORIDE 20 MEQ TABLET PO SCH (09:34)
[2017-02-18] MEDS ORDERED: WARFARIN 5 MG TABLET PO ONE (10:53)
--- NOTE | 2017-02-18 10:53 | Hospitalist Progress Note ---
Assessment and Plan (1) Chronic anticoagulation Status: Chronic Assessment and plan: The patient is anticoagulated with Coumadin secondary to atrial fibrillation. Her INR is 1.5. She is currently receiving subcutaneous Lovenox injection- renally dosed for her elevated creatinine. Okay to resume home anticoagulation and stop Lovenox. Renal function has improved. Current Visit: No (2) History of atrial fibrillation Status: Chronic Assessment and plan: Currently rate controlled. Patient on digoxin and beta-blockers with good results Current Visit: No (3) Small bowel obstruction, partial Status: Resolved Assessment and plan: The patient has an NG tube to suction. She is being followed by general surgery for this. Continue supportive care. 02/18/2017 : This has resolved. The NG tube has been removed. The patient is tolerating diet. Abdominal pain has improved. She is likely to be discharged home today. Current Visit: Yes (4) Chronic kidney disease, stage II (mild) Status: Chronic Assessment and plan: Creatinine is close to baseline. Continue IV fluids at 50cc/hr. Current Visit: No Hospitalist: Subjective Interval history: Patient seen and examined. No acute events overnight. Case discussed with nursing staff. Labs reviewed. NG tube was removed. She is tolerating her diet. Her abdomen is soft and nontender. She feels well and is likely to be discharged today. Exam - Constitutional Vitals: Period Temp Pulse Resp BP Sys/Pagan Pulse Ox Last 24 Hr 96.9 F-99.6 F 70-83 16-20 114-151/63-76 96-99 Exam: Constitutional System: No distress. No tremulousness. Head: Normocephalic, atraumatic. Ears, Nose and Throat System: No pain or tenderness. Eyes System: Pupils equal, round, and reactive. Extraocular muscles intact. Neck: Supple, without adenopathy, No jugular venous distention. Respiratory System: Chest clear to auscultation. Cardiovascular System: Heart with regular rate and rhythm. No murmur. GI System: Abdomen soft, nontender with normal bowel sounds. Musculoskeletal System: limbs with no pedal edema. Full distal pulses. Normal capillary refill. Neurological System: No discernable sensory deficit. No aphasia Psychiatric System: Conversation is rational Results - Labs CBC & BMP: 02/17/17 05:45 02/17/17 05:45 Lab Results: I have reviewed the past 24 hour labs Quality Measures - VTE Contraindication to Pharmacological VTE Prophylaxis: Already on Theraputic Agent , No Prophylaxis Needed
--- NOTE | 2017-02-18 10:59 | Discharge Summary ---
Hospital Course - Hospital Course Hospital Course: Patient is an 81-year-old female with past medical history of paroxysmal atrial fibrillation on chronic Coumadin who presented to the emergency department with small bowel obstruction. This resolved with conservative measures. At the time of discharge, the patient was passing bowels without complication, voiding , tolerating activity, and had adequate pain management. Her INR was subtherapeutic upon admission and she was placed on weight-based Lovenox. She was discharged home with home health services to continue Coumadin management under her primary care physician per the recommendations of the hospitalist team which was consulted for medical management; appreciate their input. No complications noted. Diagnosis - Discharge Diagnosis (1) Subtherapeutic international normalized ratio (INR) Status: Acute (2) Small bowel obstruction, partial Status: Resolved (3) Chronic anticoagulation Status: Chronic (4) History of atrial fibrillation Status: Chronic (5) Chronic kidney disease, stage II (mild) Status: Chronic Specialty Discharge - Follow Up or Referrals Follow up with: Gerardo Casey III., MD [Physician] - (as needed) Discharge Plan - Discharge Data Disposition: Home Health Service Condition at Discharge: Stable Discharge Diet: advance to your usual diet Activity: resume usual activities as tolerated Contact your physician if you experience:: Difficulty voiding, Nausea/Vomiting - Discharge Medications Continue Multivitamin with Minerals [Multivitamins with Minerals] 1 each PO DAILY Potassium Chloride Cap/Tab [K Dur] 20 meq PO DAILY Pantoprazole Tab [Protonix Tab] 40 mg PO DAILY@0700 Metoprolol Succinate Xl [Toprol Xl] 25 mg PO BID Losartan [Cozaar] 25 mg PO DAILY Furosemide Tab [Lasix Tab] 20 mg PO DAILY Digoxin Tab [Lanoxin Tab] 0.125 mg PO DAILY Loperamide Cap [Imodium Cap] 2 mg PO Q2H PRN #0 capsule PRN Reason: Diarrhea HYDROcodone/ACETAMIN 5-325 [Muir 5-325] 1 tablet PO Q4H PRN #20 tablet PRN Reason: Pain Mild (1-3) Acetaminophen Tab [Tylenol Tab] 325 mg PO Q4H PRN #0 tablet PRN Reason: fever, headache/body aches Warfarin [Coumadin] 3 mg PO DIRECTED Warfarin [Coumadin] 2 mg PO DIRECTED - Follow Up or Referral Follow Up: Gerardo Casey III., MD [Physician] - (as needed) - Forms/Instructions Instructions: Warfarin (By mouth), Bowel Obstruction (DC) Additional Discharge Instructions: PCP for INR monitoring. Exam - Constitutional Vitals: Period Temp Pulse Resp BP Sys/Pagan Pulse Ox Last 24 Hr 96.9 F-99.6 F 70-83 16-20 114-151/63-76 96-99 General appearance: no acute distress - Head Head exam: Present: normocephalic - Respiratory Respiratory exam: Present: clear to auscultation bilaterally - Cardiovascular Cardiovascular exam: Present: regular rate and rhythm - GI/Abdominal GI/Abdominal exam: Present: normal bowel sounds, soft. Absent: distended, tenderness - Extremities Exam Extremities exam: Absent: calf tenderness, edema - Neurological Exam Neurological exam: Present: alert, oriented X3 - Psychiatric Psychiatric exam: Present: normal affect, normal mood - Skin Skin exam: Present: normal color Discharge Results - Imaging and Cardiology Procedure: Chest x-ray: image reviewed by me, report reviewed by me, KUB x-ray: image reviewed by me, report reviewed by me, CT Abdomen and Pelvis: image reviewed by me, report reviewed by me DS: Provider Date of admission: 02/15/17 16:43 Primary care physician: . No PCP Attending physician on admission: Gerardo Casey III., Consults: 02/15/17 17:21 Consult to Physician [CONS] Routine Comment: Consulting Provider: Jb Bermeo Consult to Specialist Group: Hospitalist When should Consulting Provider be notified: Now Consult Notification Comment: ALEKSANDAR SANCHEZ SAW IN ER Discharging clinician: Florencia Han PA-C
[2017-02-18 12:50] VITALS: BP 107/63
== END 2017-02-18 13:25 | disposition home health service (06) | DRG 389 ==
LOC: N.ED 13:47 → N.EDINP 17:19 → N.3E 18:15
PROVIDERS: ADMIT Surgery; ATTEND Surgery

== ENCOUNTER 2019-10-06 13:31 | Observation (INO) ==
[2019-10-06 14:05] LABS: Basophils % 0.2 % (0.0-0.8); Eosinophils # 0.1 10*3/uL (0.0-0.87); Hematocrit 35.2 VOL% (35.7-47.0); Hemoglobin 11.2 GM/DL (12.0-16.0); Immature Granulocytes % 0.2 %; Immature Granulocytes Absolute 0.01 #; Lymphocytes # 2.6 10*3/uL (1.4-4.0); Lymphocytes % 41.9 % (21.3-54.2); Mean Corpuscular HGB Conc 31.8 GM/DL (32-36); Mean Corpuscular Volume 93.4 FL (87-102); Mean Platelet Volume 9.7 FL (9.6-12.0); Monocytes % 6.4 % (1.7-12.7); Neutrophils % 49.3 % (38.7-73.9); Platelet Count 204 T/CUMM (130-400); Red Blood Count 3.77 MC/CUMM (3.8-5.5); Red Cell Distribution Width 13.5 % (9.3-17.3); White Blood Count 6.1 T/CUMM (4-12)
[2019-10-06 14:27] LABS: Alanine Aminotransferase 24 U/L (13-56); Albumin 2.7 G/DL (3.4-5.0); Alkaline Phosphatase 66 U/L (45-117); Aspartate Amino Transferase 67 U/L (0-37); Bilirubin,Total < 0.39 MG/DL (0.2-1.0); Blood Urea Nitrogen 41 MG/DL (7-18); Estimated Glom Filtration Rate 28 ML/MIN; Glucose 120 MG/DL (74-106); Osmolality,Calculated 287.5 MOS/KG (273-304); Total Protein 7.3 G/DL (6.4-8.3)
[2019-10-06] MEDS ORDERED: SODIUM CHLORIDE 0.9% 500 ML IV STA (14:47)
[2019-10-06 15:04] LABS: Eosinophils 4 % (0-10); Lymphocytes 41 % (20-55); Platelet Estimate Adequate; Reactive Lymphocytes Few; Segmented Neutrophils 47 % (50-85); Total Cells Counted 100
[2019-10-06] MEDS ORDERED: ONDANSETRON 4 MG/2 ML VIAL IV PRN (15:48)
[2019-10-06] MEDS ORDERED: DEXTROSE 50% 25 GM/50 ML VIAL IV PRN (15:48)
[2019-10-06] MEDS ORDERED: ACETAMINOPHEN 325 MG TABLET PO PRN (15:48)
[2019-10-06] MEDS ORDERED: GLUCAGON 1 MG VIAL IM PRN (15:48)
[2019-10-06 16:19] LABS: Thyroid Stimulating Hormone 0.294 uIU/ml (0.358-3.74)
[2019-10-06] MEDS: ENOXAPARIN 30 MG/0.3 ML SYRINGE SUBCUT SCH (18:47)
[2019-10-06] MEDS: MEMANTINE 5 MG TABLET PO SCH (21:30)
[2019-10-06] MEDS: GABAPENTIN 100 MG CAPSULE PO SCH (21:30)
[2019-10-06] MEDS: risperiDONE 0.25 MG TABLET PO SCH (21:30)
[2019-10-07] MEDS: SODIUM CHLORIDE 0.45% 1,000 ML IV SCH ×3 (01:00→16:38)
[2019-10-07 05:21] LABS: Basophils % 0.2 % (0.0-0.8); Eosinophils # 0.2 10*3/uL (0.0-0.87); Eosinophils % 2.8 % (0.00-10.9); Hematocrit 31.1 VOL% (35.7-47.0); Immature Granulocytes % 0.5 %; Immature Granulocytes Absolute 0.03 #; Lymphocytes # 2.9 10*3/uL (1.4-4.0); Lymphocytes % 47.5 % (21.3-54.2); Mean Corpuscular HGB Conc 32.2 GM/DL (32-36); Mean Corpuscular Volume 91.2 FL (87-102); Mean Platelet Volume 9.6 FL (9.6-12.0); Monocytes % 6.8 % (1.7-12.7); Neutrophils % 42.2 % (38.7-73.9); Platelet Count 198 T/CUMM (130-400); Red Blood Count 3.41 MC/CUMM (3.8-5.5); Red Cell Distribution Width 13.5 % (9.3-17.3); White Blood Count 6.2 T/CUMM (4-12)
[2019-10-07 05:54] LABS: Albumin 2.3 G/DL (3.4-5.0); Bilirubin,Total 0.7 MG/DL (0.2-1.0); Calcium 8.2 MG/DL (8.5-10.1); Osmolality,Calculated 290.1 MOS/KG (273-304); Total Protein 6.7 G/DL (6.4-8.3)
[2019-10-07] MEDS: ENOXAPARIN 30 MG/0.3 ML SYRINGE SUBCUT SCH (08:27)
[2019-10-07] MEDS: CITALOPRAM 20 MG TABLET PO SCH (08:27)
[2019-10-07] MEDS: MEMANTINE 5 MG TABLET PO SCH ×2 (08:27→21:35)
[2019-10-07] MEDS: risperiDONE 0.25 MG TABLET PO SCH ×2 (08:27→21:35)
[2019-10-07] MEDS ORDERED: AZITHROMYCIN 250 MG TABLET PO SCH (09:00)
[2019-10-07] MEDS: GABAPENTIN 100 MG CAPSULE PO SCH (21:35)
[2019-10-08] MEDS: SODIUM CHLORIDE 0.45% 1,000 ML IV SCH (03:21)
[2019-10-08 05:12] LABS: Basophils % 0.2 % (0.0-0.8); Eosinophils # 0.2 10*3/uL (0.0-0.87); Eosinophils % 2.9 % (0.00-10.9); Hematocrit 31.3 VOL% (35.7-47.0); Hemoglobin 9.8 GM/DL (12.0-16.0); Immature Granulocytes % 0.3 %; Immature Granulocytes Absolute 0.02 #; Lymphocytes # 2.5 10*3/uL (1.4-4.0); Lymphocytes % 39.7 % (21.3-54.2); Mean Corpuscular HGB Conc 31.3 GM/DL (32-36); Mean Platelet Volume 9.9 FL (9.6-12.0); Monocytes % 7.7 % (1.7-12.7); Neutrophils % 49.2 % (38.7-73.9); Platelet Count 205 T/CUMM (130-400); Red Blood Count 3.33 MC/CUMM (3.8-5.5); Red Cell Distribution Width 13.3 % (9.3-17.3); White Blood Count 6.2 T/CUMM (4-12)
[2019-10-08 05:54] LABS: Hypochromasia 1+; Microcytosis Slight
[2019-10-08 05:55] LABS: Ovalocytes Slight; Platelet Estimate Normal
[2019-10-08] MEDS: risperiDONE 0.25 MG TABLET PO SCH (09:20)
[2019-10-08] MEDS: MEMANTINE 5 MG TABLET PO SCH (09:20)
[2019-10-08] MEDS: ENOXAPARIN 30 MG/0.3 ML SYRINGE SUBCUT SCH (09:20)
[2019-10-08] MEDS: CITALOPRAM 20 MG TABLET PO SCH (09:20)
[2019-10-08] MEDS ORDERED: VANCOMYCIN INJ 1,000 MG in SODIUM CHLORIDE 0.9% 250 ML IV SCH (10:00)
[2019-10-08 17:34] VITALS: BP 137/68
== END 2019-10-08 17:37 | disposition swing bed (61) ==
LOC: EDBD → EDUNIT# → N.EDINP 13:31 → N.ED 13:31 → SUATTDRO 15:12 → N.2W 17:26
PROVIDERS: ADMIT Family Medicine; ATTEND Internal Medicine

== ENCOUNTER 2021-09-11 12:17 | Inpatient (IN) ==
[2021-09-11] MEDS ORDERED: HYDROmorphone 1 MG/1 ML SYRINGE IV STA (13:37)
[2021-09-11] MEDS ORDERED: ONDANSETRON 4 MG/2 ML VIAL IV STA (13:39)
[2021-09-11 13:59] LABS: Basophils % 0.2 % (0.0-0.8); Eosinophils % 0.2 % (0.00-10.9); Hematocrit 30.7 VOL% (35.7-47.0); Hemoglobin 9.9 GM/DL (12.0-16.0); Immature Granulocytes % 0.6 %; Immature Granulocytes Absolute 0.08 #; Lymphocytes # 1.2 10*3/uL (1.4-4.0); Lymphocytes % 9.5 % (21.3-54.2); Mean Corpuscular HGB Conc 32.2 GM/DL (32-36); Mean Corpuscular Volume 90.8 FL (87-102); Mean Platelet Volume 9.5 FL (9.6-12.0); Monocytes % 4.9 % (1.7-12.7); Neutrophils % 84.6 % (38.7-73.9); Platelet Count 195 T/CUMM (130-400); Red Blood Count 3.38 MC/CUMM (3.8-5.5); Red Cell Distribution Width 14.7 % (9.3-17.3); White Blood Count 12.9 T/CUMM (4-12)
[2021-09-11 14:14] LABS: Calcium 8.6 MG/DL (8.5-10.1); Osmolality,Calculated 287.5 MOS/KG (273-304)
[2021-09-11] MEDS ORDERED: SODIUM CHLORIDE 0.9% 500 ML IV STA (14:32)
[2021-09-11] MEDS ORDERED: GLUCAGON 1 MG VIAL IM PRN (14:38)
[2021-09-11] MEDS ORDERED: hydrALAZINE 20 MG/1 ML VIAL IV PRN (14:38)
[2021-09-11] MEDS ORDERED: ONDANSETRON 4 MG/2 ML VIAL IV PRN (14:38)
[2021-09-11] MEDS ORDERED: ACETAMINOPHEN 325 MG TABLET PO PRN (14:38)
[2021-09-11] MEDS ORDERED: DEXTROSE 10% 250 ML BAG IV PRN (14:38)
[2021-09-11] MEDS ORDERED: ZIPRASIDONE 20 MG/1 ML VIAL IM PRN (14:52)
[2021-09-11] MEDS: SODIUM CHLORIDE 0.9% 1,000 ML IV SCH (15:22)
[2021-09-11 15:40] LABS: PT Patient Result 11.3 SECS (10.5-12.0); Partial Thromboplastin Time 20.6 SECS (23.8-32.1)
[2021-09-11 18:42] LABS: Bilirubin,Urine Negative (Negative); Blood, Urine Negative (Negative); Glucose,Urine (UA) Negative (Negative); Hyaline Casts,Urine 3 /LPF (0-3); Ketones,Urine Negative (Negative); Mucus,Urine Occasional /LPF (Occasional); Nitrite,Urine Negative (Negative); Protein,Urine Negative (Negative); RBC,Urine <1 /HPF (0-4); Squamous Epithelial Cell,Urine Occasional /HPF (0-10); Urine Appearance Clear (Clear); Urine Color Yellow (Yellow); Urine Specific Gravity 1.015 (1.001-1.035); Urine Urobilinogen 0.2 eU/dL (<2.0); Urine pH 5.5 (4.5-8.0)
[2021-09-11] MEDS: MEMANTINE 5 MG TABLET PO SCH (20:56)
[2021-09-11] MEDS: GABAPENTIN 100 MG CAPSULE PO SCH (20:56)
[2021-09-11] MEDS: risperiDONE 0.25 MG TABLET PO SCH (20:56)
[2021-09-12] MEDS: SODIUM CHLORIDE 0.9% 1,000 ML IV SCH (05:15)
[2021-09-12 06:09] LABS: Basophils % 0.2 % (0.0-0.8); Eosinophils # 0.2 10*3/uL (0.0-0.87); Eosinophils % 2.6 % (0.00-10.9); Hematocrit 23.2 VOL% (35.7-47.0); Hemoglobin 7.3 GM/DL (12.0-16.0); Immature Granulocytes % 0.2 %; Immature Granulocytes Absolute 0.02 #; Lymphocytes # 3.1 10*3/uL (1.4-4.0); Lymphocytes % 36.4 % (21.3-54.2); Mean Corpuscular HGB Conc 31.5 GM/DL (32-36); Mean Corpuscular Volume 93.5 FL (87-102); Mean Platelet Volume 9.7 FL (9.6-12.0); Monocytes % 10.6 % (1.7-12.7); Platelet Count 150 T/CUMM (130-400); Red Blood Count 2.48 MC/CUMM (3.8-5.5); Red Cell Distribution Width 14.8 % (9.3-17.3); White Blood Count 8.5 T/CUMM (4-12)
[2021-09-12 06:50] LABS: Albumin 2.2 G/DL (3.4-5.0); Bilirubin,Total 0.6 MG/DL (0.20-1.00); Calcium 7.9 MG/DL (8.5-10.1); Total Protein 5.9 G/DL (6.4-8.2)
[2021-09-12] MEDS: CITALOPRAM 20 MG TABLET PO SCH (11:47)
[2021-09-12] MEDS: risperiDONE 0.25 MG TABLET PO SCH ×2 (11:48→21:47)
[2021-09-12] MEDS: MEMANTINE 5 MG TABLET PO SCH ×2 (11:48→21:47)
[2021-09-12] MEDS: LOSARTAN 25 MG TABLET PO SCH (11:48)
[2021-09-12] MEDS ORDERED: SODIUM CHLORIDE 0.9% 1,000 ML IV PRN (12:28)
[2021-09-12] MEDS ORDERED: ENOXAPARIN 40 MG/0.4 ML SYRINGE SUBCUT SCH (15:00)
[2021-09-12] MEDS ORDERED: buprenorphine HCL 0.3 MG/ML VIAL ONE (15:56)
[2021-09-12] MEDS ORDERED: BUPIVACAINE SPINAL 0.75% 2 ML AMP SPINAL ONE (15:56)
[2021-09-12] MEDS ORDERED: LIDOCAINE 2% 5 ML VIAL ONE (16:01)
[2021-09-12] MEDS ORDERED: fentaNYL 100 MCG/2 ML VIAL ONE ×2 (16:01→17:24)
[2021-09-12] MEDS ORDERED: KETAMINE 500 MG/10 ML VIAL ONE (16:01)
[2021-09-12] MEDS ORDERED: PHENYLEPHRINE DRIP 20 MG/250 ML PREMIX IV ONE (16:06)
[2021-09-12] MEDS ORDERED: ceFAZolin 1,000 MG VIAL ONE (17:19)
[2021-09-12] MEDS ORDERED: propofoL 200 MG/20 ML VIAL IV ONE (17:30)
[2021-09-12] MEDS ORDERED: FUROSEMIDE 20 MG/2 ML VIAL ONE (17:54)
[2021-09-12] MEDS ORDERED: SODIUM CHLORIDE 0.9% 1,000 ML IV ONE (17:54)
[2021-09-12] MEDS ORDERED: CALCIUM CHLORIDE 1,000 MG/10 ML VIAL IV ONE (19:34)
[2021-09-12] MEDS ORDERED: LACTATED RINGERS 1,000 ML IV ONE (19:37)
[2021-09-12 21:01] LABS: Basophils % 0.2 % (0.0-0.8); Eosinophils # 0.1 10*3/uL (0.0-0.87); Eosinophils % 0.8 % (0.00-10.9); Hematocrit 29.9 VOL% (35.7-47.0); Hemoglobin 9.5 GM/DL (12.0-16.0); Immature Granulocytes % 0.5 %; Immature Granulocytes Absolute 0.07 #; Lymphocytes # 1.6 10*3/uL (1.4-4.0); Mean Corpuscular HGB Conc 31.8 GM/DL (32-36); Mean Corpuscular Volume 93.4 FL (87-102); Mean Platelet Volume 9.4 FL (9.6-12.0); Monocytes % 11.7 % (1.7-12.7); Neutrophils % 75.8 % (38.7-73.9); Platelet Count 111 T/CUMM (130-400); White Blood Count 14.6 T/CUMM (4-12)
[2021-09-12 21:21] LABS: Calcium 8.6 MG/DL (8.5-10.1); Osmolality,Calculated 296.8 MOS/KG (273-304); Potassium 4.6 MMOL/L (3.5-5.1)
[2021-09-12] MEDS: GABAPENTIN 100 MG CAPSULE PO SCH (21:47)
[2021-09-13] MEDS: SODIUM CHLORIDE 0.9% 1,000 ML IV SCH ×2 (06:08)
[2021-09-13] MEDS: MORPHINE 2 MG/1 ML SYRINGE IV PRN ×2 (07:15→15:06)
[2021-09-13 08:28] LABS: Hematocrit 23.9 VOL% (35.7-47.0); Hemoglobin 7.7 GM/DL (12.0-16.0)
[2021-09-13] MEDS: risperiDONE 0.25 MG TABLET PO SCH ×2 (09:12→20:31)
[2021-09-13] MEDS: MEMANTINE 5 MG TABLET PO SCH ×2 (09:12→20:31)
[2021-09-13] MEDS: CITALOPRAM 20 MG TABLET PO SCH (09:12)
[2021-09-13] MEDS: LOSARTAN 25 MG TABLET PO SCH (09:12)
[2021-09-13 11:09] LABS: Basophils % 0.2 % (0.0-0.8); Eosinophils # 0.1 10*3/uL (0.0-0.87); Eosinophils % 1.1 % (0.00-10.9); Hematocrit 23.7 VOL% (35.7-47.0); Hemoglobin 7.8 GM/DL (12.0-16.0); Immature Granulocytes % 0.5 %; Immature Granulocytes Absolute 0.06 #; Lymphocytes % 17.2 % (21.3-54.2); Mean Corpuscular HGB Conc 32.9 GM/DL (32-36); Mean Corpuscular Volume 92.6 FL (87-102); Mean Platelet Volume 9.9 FL (9.6-12.0); Monocytes % 13.3 % (1.7-12.7); Neutrophils % 67.7 % (38.7-73.9); Platelet Count 105 T/CUMM (130-400); Red Blood Count 2.56 MC/CUMM (3.8-5.5); Red Cell Distribution Width 15.2 % (9.3-17.3); White Blood Count 11.5 T/CUMM (4-12)
[2021-09-13 11:21] LABS: Calcium 7.4 MG/DL (8.5-10.1); Potassium 4.7 MMOL/L (3.5-5.1)
[2021-09-13 11:53] LABS: Platelet Estimate Decreased
[2021-09-13] MEDS: ENOXAPARIN 30 MG/0.3 ML SYRINGE SUBCUT SCH (13:59)
[2021-09-13] MEDS ORDERED: TUBERCULIN SKIN TEST 0.1 ML SYRINGE INTRADERM ONE (16:14)
[2021-09-13] MEDS: GABAPENTIN 100 MG CAPSULE PO SCH (20:31)
[2021-09-14] MEDS: SODIUM CHLORIDE 0.9% 1,000 ML IV SCH ×2 (04:08→21:13)
[2021-09-14 05:56] LABS: Basophils % 0.1 % (0.0-0.8); Eosinophils # 0.1 10*3/uL (0.0-0.87); Eosinophils % 0.8 % (0.00-10.9); Hematocrit 21.4 VOL% (35.7-47.0); Hemoglobin 6.8 GM/DL (12.0-16.0); Immature Granulocytes % 0.7 %; Immature Granulocytes Absolute 0.08 #; Lymphocytes # 2.6 10*3/uL (1.4-4.0); Lymphocytes % 21.6 % (21.3-54.2); Mean Corpuscular HGB Conc 31.8 GM/DL (32-36); Mean Corpuscular Volume 93.9 FL (87-102); Mean Platelet Volume 10.2 FL (9.6-12.0); Monocytes % 12.9 % (1.7-12.7); Neutrophils % 63.9 % (38.7-73.9); Platelet Count 99 T/CUMM (130-400); Red Blood Count 2.28 MC/CUMM (3.8-5.5); White Blood Count 12.2 T/CUMM (4-12)
[2021-09-14 06:17] LABS: Hypochromia Slight; Microcytosis 1+
[2021-09-14 06:18] LABS: Calcium 7.7 MG/DL (8.5-10.1); Osmolality,Calculated 299.8 MOS/KG (273-304); Platelet Estimate Decreased; Potassium 4.3 MMOL/L (3.5-5.1)
[2021-09-14] MEDS ORDERED: SODIUM CHLORIDE 0.9% 1,000 ML IV PRN (08:12)
[2021-09-14] MEDS: CITALOPRAM 20 MG TABLET PO SCH (08:32)
[2021-09-14] MEDS: LOSARTAN 25 MG TABLET PO SCH (08:32)
[2021-09-14] MEDS: risperiDONE 0.25 MG TABLET PO SCH ×2 (08:32→21:12)
[2021-09-14] MEDS: MEMANTINE 5 MG TABLET PO SCH ×2 (08:32→21:12)
[2021-09-14] MEDS: MORPHINE 2 MG/1 ML SYRINGE IV PRN ×2 (08:36→16:19)
[2021-09-14] MEDS: ENOXAPARIN 30 MG/0.3 ML SYRINGE SUBCUT SCH (16:50)
[2021-09-14] MEDS: GABAPENTIN 100 MG CAPSULE PO SCH (21:12)
[2021-09-14 23:57] LABS: Hematocrit 28.9 VOL% (35.7-47.0)
[2021-09-14 23:58] LABS: Hemoglobin 9.3 GM/DL (12.0-16.0)
[2021-09-15 06:28] LABS: Basophils % 0.2 % (0.0-0.8); Eosinophils # 0.3 10*3/uL (0.0-0.87); Eosinophils % 2.7 % (0.00-10.9); Hematocrit 27.6 VOL% (35.7-47.0); Immature Granulocytes % 0.6 %; Immature Granulocytes Absolute 0.07 #; Lymphocytes # 3.1 10*3/uL (1.4-4.0); Mean Corpuscular HGB Conc 32.6 GM/DL (32-36); Mean Corpuscular Volume 92.9 FL (87-102); Mean Platelet Volume 11.1 FL (9.6-12.0); Monocytes % 10.7 % (1.7-12.7); Neutrophils % 60.8 % (38.7-73.9); Platelet Count 101 T/CUMM (130-400); Red Blood Count 2.97 MC/CUMM (3.8-5.5); Red Cell Distribution Width 14.8 % (9.3-17.3); White Blood Count 12.2 T/CUMM (4-12)
[2021-09-15 06:54] LABS: Calcium 7.9 MG/DL (8.5-10.1); Osmolality,Calculated 291.3 MOS/KG (273-304); Potassium 4.6 MMOL/L (3.5-5.1)
[2021-09-15] MEDS: risperiDONE 0.25 MG TABLET PO SCH ×2 (10:23→20:59)
[2021-09-15] MEDS: LOSARTAN 25 MG TABLET PO SCH (10:23)
[2021-09-15] MEDS: CITALOPRAM 20 MG TABLET PO SCH (10:23)
[2021-09-15] MEDS: MEMANTINE 5 MG TABLET PO SCH ×2 (10:23→20:59)
[2021-09-15] MEDS: SODIUM CHLORIDE 0.9% 1,000 ML IV SCH ×3 (10:28→22:25)
[2021-09-15] MEDS: MORPHINE 2 MG/1 ML SYRINGE IV PRN ×2 (11:20→18:18)
[2021-09-15] MEDS: ENOXAPARIN 30 MG/0.3 ML SYRINGE SUBCUT SCH (15:36)
[2021-09-15] MEDS: GABAPENTIN 100 MG CAPSULE PO SCH (20:59)
[2021-09-16 04:47] LABS: Basophils % 0.2 % (0.0-0.8); Eosinophils # 0.4 10*3/uL (0.0-0.87); Eosinophils % 4.2 % (0.00-10.9); Hematocrit 26.6 VOL% (35.7-47.0); Hemoglobin 8.4 GM/DL (12.0-16.0); Immature Granulocytes % 0.7 %; Immature Granulocytes Absolute 0.06 #; Lymphocytes # 1.9 10*3/uL (1.4-4.0); Lymphocytes % 22.8 % (21.3-54.2); Mean Corpuscular HGB Conc 31.6 GM/DL (32-36); Mean Corpuscular Volume 93.7 FL (87-102); Mean Platelet Volume 9.7 FL (9.6-12.0); Monocytes % 10.9 % (1.7-12.7); Neutrophils % 61.2 % (38.7-73.9); Platelet Count 133 T/CUMM (130-400); Red Blood Count 2.84 MC/CUMM (3.8-5.5); Red Cell Distribution Width 14.8 % (9.3-17.3); White Blood Count 8.3 T/CUMM (4-12)
[2021-09-16 05:06] LABS: Calcium 7.7 MG/DL (8.5-10.1); Potassium 4.4 MMOL/L (3.5-5.1)
[2021-09-16] MEDS: CITALOPRAM 20 MG TABLET PO SCH (09:18)
[2021-09-16] MEDS: LOSARTAN 25 MG TABLET PO SCH (09:18)
[2021-09-16] MEDS: risperiDONE 0.25 MG TABLET PO SCH ×2 (09:18→20:20)
[2021-09-16] MEDS: MEMANTINE 5 MG TABLET PO SCH ×2 (09:18→20:20)
[2021-09-16] MEDS: ENOXAPARIN 30 MG/0.3 ML SYRINGE SUBCUT SCH (15:24)
[2021-09-16] MEDS: SODIUM CHLORIDE 0.9% 1,000 ML IV SCH (19:53)
[2021-09-16] MEDS: GABAPENTIN 100 MG CAPSULE PO SCH (20:20)
[2021-09-17 05:27] LABS: Basophils % 0.2 % (0.0-0.8); Eosinophils # 0.4 10*3/uL (0.0-0.87); Eosinophils % 4.7 % (0.00-10.9); Hematocrit 26.9 VOL% (35.7-47.0); Hemoglobin 8.3 GM/DL (12.0-16.0); Immature Granulocytes % 0.4 %; Immature Granulocytes Absolute 0.03 #; Lymphocytes # 1.7 10*3/uL (1.4-4.0); Lymphocytes % 21.3 % (21.3-54.2); Mean Corpuscular HGB Conc 30.9 GM/DL (32-36); Mean Corpuscular Volume 95.7 FL (87-102); Mean Platelet Volume 9.9 FL (9.6-12.0); Monocytes % 10.2 % (1.7-12.7); Neutrophils % 63.2 % (38.7-73.9); Platelet Count 160 T/CUMM (130-400); Red Blood Count 2.81 MC/CUMM (3.8-5.5); Red Cell Distribution Width 14.7 % (9.3-17.3); White Blood Count 8.2 T/CUMM (4-12)
[2021-09-17 05:45] LABS: Calcium 8.3 MG/DL (8.5-10.1); Osmolality,Calculated 300.7 MOS/KG (273-304); Potassium 4.5 MMOL/L (3.5-5.1)
[2021-09-17] MEDS: LOSARTAN 25 MG TABLET PO SCH (09:02)
[2021-09-17] MEDS: CITALOPRAM 20 MG TABLET PO SCH (09:02)
[2021-09-17] MEDS: MEMANTINE 5 MG TABLET PO SCH ×2 (09:02→21:03)
[2021-09-17] MEDS: risperiDONE 0.25 MG TABLET PO SCH ×2 (09:02→21:03)
[2021-09-17] MEDS: ALBUTEROL 2.5 MG/3 ML NEB RESP TX PRN (09:52)
[2021-09-17] MEDS: ENOXAPARIN 30 MG/0.3 ML SYRINGE SUBCUT SCH (15:39)
[2021-09-17] MEDS: GABAPENTIN 100 MG CAPSULE PO SCH (21:03)
[2021-09-18] MEDS: ALBUTEROL 2.5 MG/3 ML NEB RESP TX PRN (07:51)
[2021-09-18] MEDS: CITALOPRAM 20 MG TABLET PO SCH (08:40)
[2021-09-18] MEDS: risperiDONE 0.25 MG TABLET PO SCH (08:40)
[2021-09-18] MEDS: MEMANTINE 5 MG TABLET PO SCH (08:40)
[2021-09-18] MEDS: LOSARTAN 25 MG TABLET PO SCH (08:45)
[2021-09-18 12:07] VITALS: BP 134/68
== END 2021-09-18 14:25 | DRG 481 ==
LOC: SUATTDRO → EDUNIT# → N.ED 12:17 → N.EDINP 15:24 → SUATTDRO 15:24 → N.3E 16:44
PROVIDERS: ADMIT Family Medicine; ATTEND Internal Medicine